=== PATIENT | female | born 1955 | race Asian ===

== ENCOUNTER → 2020-05-15 13:47 | Outpatient (CLI) | payer MEDICARE, SELFPAY ==
--- NOTE | 2020-05-15 | DI.CT.S_ITS ---
PROCEDURE: CT SINUS SCREEN WO CON INDICATIONS: Atypical facial pain TECHNIQUE: Noncontrast 3.0 mm axial images acquired from the frontal sinuses to the mid-sella, with coronal and sagittal reformats. For radiation dose reduction, the following was used: automated exposure control, adjustment of mA and/or kV according to patient size. COMPARISON: None. FINDINGS: Image quality: Excellent. Maxillary Sinuses: No bony remodeling or destruction. Sinuses are clear. Ethmoid Air Cells: No bony remodeling or destruction. Sinuses are clear. Sphenoid Sinuses: No bony remodeling or destruction. Sinuses are clear. Frontal Sinuses: No bony remodeling or destruction. Sinuses are clear. Ostiomeatal Complexes: Ostiomeatal complexes are patent. No Daya cells. Miscellaneous: Visualized intra-orbital contents are normal. No tiff bullosa or paradoxical turbinate curvature. No nasal septal deviation. Bilateral temporomandibular joint degeneration, left greater than right. IMPRESSION: Clear sinuses Bilateral temporomandibular joint degeneration Dictated by: Hawk Tabor M.D. on 05/15/2020 at 14:40 Approved by: Hawk Tabor M.D. on 05/15/2020 at 15:24
== END ==
PROVIDERS: Referring Provider Otolaryngology; Visit Provider Otolaryngology
DX: J32.8 Other chronic sinusitis (principal); G50.1 Atypical facial pain; M26.69 Other specified disorders of temporomandibular joint
CPT/HCPCS: 70486

== ENCOUNTER → 2021-04-18 10:38 | Outpatient (CLI) | payer MEDICARE, SELFPAY ==
--- NOTE | 2021-04-18 10:59 | DI.CT.S_ITS ---
PROCEDURE: CT LE LT W CON INDICATIONS: pain in left ankle and joints of left foot TECHNIQUE: Noncontrast 1-1.5 mm axial sections acquired from above the tibiotalar joint to the bottom of the calcaneus, with coronal and sagittal reformats. COMPARISON: [facility], CR, XR ANKLE 3+ VIEWS LEFT, 04/11/2021, 11:43. [facility], CR, XR ANKLE 3+ VIEWS LEFT, 12/20/2019, 9:00. [facility], CR, XR ANKLE 3VW LT, 06/13/2016, 14:09. [facility], CR, XR ANKLE 3VW LT, 04/02/2016, 15:27. [facility], CR, ANKLE 3 VIEWS LEFT, 02/22/2016, 16:58. FINDINGS: Image quality: Excellent. Bones: No acute fracture identified. Diffuse osteopenia. Severe hindfoot and midfoot osteoarthritis, with [id number] appearance at posterior facet of the subtalar joint. Chronic calcaneal fracture and possibly superimposed postsurgical changes noted with bridging ossification. There is some remaining lucency seen on image 91/4 for example. Tibiotalar degenerative joint disease. Plantar and posterior calcaneal spurs. There is diffuse muscle atrophy. Incidentally noted unfused accessory navicular. Soft tissues: The visualized tendons are grossly unremarkable. Circumferential hindfoot subcutaneous stranding and edema. IMPRESSION: Calcaneal fracture with bridging ossification. Severe subtalar degenerative joint disease with xfcm-hi-tyot appearance. Plantar and posterior calcaneal spurring Diffuse osteopenia. Muscle atrophy Dictated by: Hawk Tabor M.D. on 04/18/2021 at 12:01 Approved by: Hawk Tabor M.D. on 04/18/2021 at 12:08
== END ==
PROVIDERS: Referring Provider Orthopaedic Surgery Foot and Ankle Surgery; Visit Provider Orthopaedic Surgery Foot and Ankle Surgery
DX: M25.572 Pain in left ankle and joints of left foot (principal); S92.002G Unspecified fracture of left calcaneus, subsequent encounter for fracture with delayed healing; M19.072 Primary osteoarthritis, left ankle and foot; M77.32 Calcaneal spur, left foot; M85.872 Other specified disorders of bone density and structure, left ankle and foot
CPT/HCPCS: 73700

== ENCOUNTER → 2021-06-06 10:32 | Outpatient (CLI) | payer MEDICARE, SELFPAY | PROVIDERS: Referring Provider Orthopaedic Surgery Foot and Ankle Surgery; Visit Provider Orthopaedic Surgery Foot and Ankle Surgery | DX: Z01.818 Encounter for other preprocedural examination (principal) | CPT/HCPCS: 93005; 93010 ==

== ENCOUNTER → 2021-06-20 09:57 | Outpatient (CLI) | payer MEDICARE, SELFPAY ==
[2021-06-20 11:19] LABS: COVID19 -Nasal RAPID Negative (Negative)
== END ==
PROVIDERS: Visit Provider Physician Assistant
DX: Z20.822 Contact with and (suspected) exposure to COVID-19 (principal)
CPT/HCPCS: 87635

== ENCOUNTER → 2021-07-18 16:43 | Outpatient (CLI) | payer MEDICARE, SELFPAY ==
[2021-07-18 17:09] LABS: COVID19 -Nasal RAPID Negative (Negative)
== END ==
PROVIDERS: Visit Provider Physician Assistant
DX: Z20.822 Contact with and (suspected) exposure to COVID-19 (principal)
CPT/HCPCS: 87635

== ENCOUNTER 2021-07-20 06:13 | Day surgery (SDC) | payer MEDICARE, SELFPAY ==
[2021-06-13 14:33] VITALS: BMI 25.7
[2021-07-20] VITALS (10 sets, daily range): BP systolic 108–153; BP diastolic 50–78; PULSE 51–69; RESP 9–23; TEMP 36.2–36.8; O2SAT 97–100; BMI 26.5
--- NOTE | 2021-07-20 | DI.RAD.S_ITS ---
PROCEDURE: XR ANKLE LT MIN 3V INDICATIONS: LEFT ANKLE TECHNIQUE: Several intraoperative fluoroscopic views of the ankle were acquired. COMPARISON: [facility], , ANKLE 3 VIEWS LEFT, 02/22/2016, 16:58. FINDINGS: Bones: Several fluoroscopic intraoperative images of the left ankle demonstrate pins traversing the dorsal aspect of the talus and calcaneus and arthrodesis of the posterior subtalar joint. Ultimately, there is surgical fusion of the posterior subtalar joint with two lag screws appearing in appropriate position. Soft tissues: Expected location of surgical instrumentation. IMPRESSION: Expected improper of appearance of arthrodesis of the posterior subtalar joint and fusion. Dictated by: Mary Márquez M.D. on 07/20/2021 at 12:27 Approved by: Mary Márquez M.D. on 07/20/2021 at 12:29
--- NOTE | 2021-07-20 07:21 | SUR.PREOP ---
Pt speaks [place], and only understands a little arg[place]. Son is with pt to interpret.
--- NOTE | 2021-07-20 07:39 | PM.PREOP ---
Pre-operative Note COVID-19 COVID-19 status: Negative Interval Note History & Physical reviewed/Exam performed by Physician: Yes Changes to H&P: No
[2021-07-20] MEDS: CEFAZOLIN 1 GM VIAL 2 GM IV (08:13)
--- NOTE | 2021-07-20 08:49 | SUR.OPER ---
Prone on padded OR bed, head in foam head support, gel chest rolls, gel pad under knees, pillow under lower legs, toes free of pressure, right leg secured with tape, left leg draped free arms secured on padded arm boards at <90 degrees abduction. Safety belt at thigh.
[2021-07-20] MEDS: BUPIVACAINE 0.25% (PF) VIAL 30 ML INJ (09:01)
[2021-07-20] MEDS: EPINEPHrine 1 MG/ML SUBCUT (09:04)
[2021-07-20] MEDS: LACTATED RINGERS 1,000 ML 42 ML IV (10:40)
[2021-07-20] MEDS: fentaNYL 100 MCG/2 ML INJ IV ×2 (11:13→11:25)
--- NOTE | 2021-07-20 11:25 | SUR.PHASEI ---
acknowledges that she wants more pain medication, states yes to pain
[2021-07-20] MEDS: ACETAMINOPHEN 325 MG TABLET 650 MG PO (11:34)
[2021-07-20] MEDS: OXYCODONE IR 5 MG TABLET PO (11:34)
--- NOTE | 2021-07-20 11:34 | PM.OP.1 ---
Operative Date/Time/Diagnoses Date of procedure: 07/20/21 Time of procedure: 08:20 Pre-op diagnosis: Displaced fracture left calcaneus with malunion S92.012P Posttraumatic arthritis left subtalar joint M19.172 Post-op diagnosis: same Procedure & Clinicians Procedure: Subtalar distraction bone block fusion cpt 81603 left Exostectomy left calcaneus cpt 49177 Bone graft any donor area of minor small-posterior iliac crest left cpt 13866 Same procedure as scheduled: Yes Indications: The patient is a 65-year-old female symptomatic calcaneal malunion, left and posttraumatic arthritis with severe collapse. She has failed conservative treatment has daily pain and difficulty with ambulation. She has been indicated for distraction subtalar arthrodesis. Issues the bone block to restore height and dress the anterior impingement intentionally will do an exostectomy of the lateral wall of the calcaneus. The risks and benefits of the procedure have been discussed with the patient even opportunity to ask questions. The risks of surgery include but are not limited to infection, malunion, nonunion, persistence of pain, damage to nerves and blood vessels, posttraumatic arthritis, DVT, PE, cardiopulmonary complications and . The patient expressed a thorough understanding of the risks and benefits of surgery and has elected to proceed. Consent was signed in the office. During the operation, the services of a physician academic assistant were medically indicated and necessary to provide the exposure of the operative site for the surgical procedure and to maintain the limb in a proper position to carry out the operation safely and efficiently. Without a qualified assistant press operator being present this would extended the operative procedure and made the procedure technically more difficult to perform. Surgeon: Natalie Gonzales Business Analyst Intern: Deja Dumas Anesthesia Type: General, Peripheral nerve block and Local Operative Notes Findings: Severe malunion left calcaneus fracture with joint surface collapse and posttraumatic arthritis. Subtalar joint was identified remainder of the cartilage debrided to a bleeding cancellous bone at the calcaneus and talus this was then distracted improving alignment. A 14 mm paragon graft was selected this was hydrated in saline followed by bone marrow aspirate and then placed and secured with a 7 0 and 5.5 fully-threaded screw. The lateral wall exostectomy was completed. Closure Type: primary Specimen(s): none sent Prosthetic devices, grafts, tissues, transplants, or devices: 7.0 cannulated fully-threaded screw 65mm paragon 28 5.5 cannulated fully threaded screw 65mm preserve 14mm subtalar graft Estimated Blood Loss (mL): 50 Blood products transfused: none Tourniquet time (min): 111 Procedure in detail: Patient was seen in the preoperative area the site of surgery was marked informed consent confirmed. She was brought back to the operating room by the anesthesia team she underwent a regional block for postoperative pain control performed by the anesthesia team. General anesthetic was then administered. She was then positioned prone on the operative table with all bony prominences well padded. A well-padded thigh tourniquet was placed. An SCD was on the contralateral lower extremity. The left lower extremities prepped and draped in the standard sterile fashion with additional prepped area the posterior iliac crest graft harvest site. A formal time-out procedure was performed confirming the patient's side and site of surgery administration of appropriate preoperative antibiotics. All were in agreement. Implants were in the room accounted for. Surgical incision was marked out on the back of the leg just lateral to the Achilles tendon. The Esmarch was used for exsanguination and the tourniquet was raised to 250 mmHg. Subtalar distraction bone block arthrodesis CPT code 17069: Incision was taken down through the skin and subcutaneous tissues just lateral to the Achilles tendon this was taken down through the skin subcutaneous and tissue this was debrided to the level of the subtalar joint. The fluoroscopy was brought in in the lateral plane and a [place] elevator was used to identify the subtalar joint. A baby Hohmann retractor was used to mobilize the FHL medially. Next combination of the K-wire a Steinmann pin retractors and the lamina spring assembler supervisor were used to distract the subtalar joint. Then a curette and osteotomes were used to prepare the posterior facet of the subtalar joint removing any remaining cartilage and debriding found to bleeding cancellous bone. The bur was also used in the joint preparation. The smooth lamina spring assembler supervisor was then used to distract the joint. The joint surfaces were irrigated and then fenestrated with the fenestration drill. At this point the trials were utilized starting with a a 10 and working up to a 12 and a 14 mm trial and then dilating in varus and valgus. This was reviewed on intraoperative fluoroscopy. A 14 mm graft size was selected to restore height and eliminate the anterior impingement. The graft was then opened and soaked in saline and then soaked in bone marrow aspirate. Then the graft was tamped in place restoring height and alignment. And secured with 1 7.0mm headed fully-threaded cannulated screw from the [id number] set and a 2nd 5.5mm screw. This provided excellent secure fixation. The remainder of the bone marrow aspirate was then placed around the graft site. And the wound was closed in layers with 2-0 Vicryl 4 0 Monocryl and 4-0 and 3-0 nylon. A medium Hemovac drain was placed. Bone graft small CPT code 21893: Posterior iliac spine was palpated a small senthil in the skin was made and the trocar was inserted to the level of bone and tamped into the bone. 20 cc of bone marrow aspirate was aspirated in small aliquots turning and retracting the the trocar as the aspirate was obtained and a dowel graft was also obtained. The allograft was placed into the joint site and the bone marrow aspirate was used for soaking the allograft. The the graft and bone marrow site was then closed with a single nylon suture. Exostectomy left calcaneus CPT code 91944: Next with subperiosteal dissection over the lateral wall of the calcaneus the lateral wall exostosis was identified and isolated with care to protect the soft tissues superficially. A osteotome and power rasp was used to remove the lateral wall prominence and this was confirmed on mortise x-rays intraop. Once this was smoothed down the wound was irrigated and closed as dictated above. Additionally cc of local anesthetic was infiltrated after wound closure. The tourniquet was released before closure. The patient was placed into a sterile dressing with Xeroform gauze Webril bulky Sher dressing and stirrup splint. She was woken from anesthesia and taken to recovery room in good condition. There no immediate complications from this procedure. Complications: none Post-operative Condition: stable Disposition: PACU Plan for aftercare: Nonweightbearing left lower extremity. Aspirin for DVT prophylaxis. Drain will removed in the postoperative unit to allow the patient to go home which she desires a. She does have a block for initial postoperative pain control and will have prescriptions for oxycodone, Colace, aspirin and Zofran sent to her pharmacy.
--- NOTE | 2021-07-20 11:36 | SUR.PHASEI ---
Communicating now that she is more awake, medicated for pain, tolerating PO intake
--- NOTE | 2021-07-20 11:53 | SUR.PHASEI ---
Hemovac removed by Dr. Marks. Patient approved to go home.
== END 2021-07-20 12:38 | disposition home or self-care (01) ==
PROVIDERS: Referring Provider Orthopaedic Surgery Foot and Ankle Surgery; Visit Provider Orthopaedic Surgery Foot and Ankle Surgery
PROC: (CPT 27870; principal; 2021-07-20 07:45)
PROC: (CPT 27685; 2021-07-20 07:45)
DX: S92.012 Displaced fracture of body of left calcaneus (principal); M19.172 Post-traumatic osteoarthritis, left ankle and foot; G50.0 Trigeminal neuralgia; J45.909 Unspecified asthma, uncomplicated
CPT/HCPCS: 28725; 20900; 28120; 73610; 76000; J0171; J0690; J1100; J2250; J2405; J2704; J3010